=== PATIENT | female | born 1985 | race Asian ===

== ENCOUNTER 2020-10-21 22:48 | Emergency (ER) | payer SELFPAY ==
[~2020-10-21] VITALS: Ht 152.4 cm; Wt 43.1 kg
== END 2020-10-21 23:17 | disposition home or self-care (01) ==
LOC: ER 23:04
DX: Z04.1 Encounter for examination and observation following transport accident (principal); M54.2 Cervicalgia; V43.52XA Car driver injured in collision with other type car in traffic accident, initial encounter; Y92.488 Other paved roadways as the place of occurrence of the external cause
CPT/HCPCS: 99282